=== PATIENT | female | born 1970 | race Hispanic/Latino ===

== ENCOUNTER → 2022-05-24 | Outpatient (CLI) | payer OTHER | END | disposition home or self-care (01) | LOC: RAH 11:12 | PROVIDERS: ATTEND Otolaryngology Plastic Surgery within the Head & Neck | DX: R22.1 Localized swelling, mass and lump, neck (principal) | CPT/HCPCS: 76536 ==

== ENCOUNTER 2022-06-25 08:42 | Inpatient (IN) | payer OTHER ==
[~2022-06-25] VITALS: Ht 152.4 cm; Wt 59.0 kg
[2022-06-25] VITALS (18 sets, daily range): BP systolic 116–138; BP diastolic 67–92
[2022-06-25 09:16] LABS: BASOPHILS % (AUTO) 0.5 % (0.0-5.0); EOSINOPHILS % (AUTO) 3.1 % (0.0-8.0); HEMATOCRIT 40.2 % (36-48); LYMPHOCYTES % (AUTO) 19.3 % (21.0-51.0); MEAN CORPUSCULAR HEMOGLOBIN 31.7 pg (27.0-33.0); MEAN CORPUSCULAR HGB CONC 35.1 g/dL (32.0-36.0); MEAN CORPUSCULAR VOLUME 90.3 fL (79-99); MONOCYTES % (AUTO) 7.4 % (3.0-13.0); NEUTROPHILS % (AUTO) 69.4 % (40.0-77.0); PLATELET COUNT (AUTO) 469 K/uL (130-400); RED BLOOD CELL COUNT(AUTO) 4.45 MIL/uL (4.00-5.50); RED CELL DISTRIBUTION WIDTH 12.5 % (11.0-15.5); WHITE BLOOD COUNT (AUTO) 9.3 K/uL (4.8-10.8)
[2022-06-25 09:18] LABS: APPEARANCE,URINE CLOUDY (CLEAR); BILIRUBIN,URINE NEGATIVE (NEGATIVE); COLOR,URINE LIGHT-YELLOW (YELLOW); GLUCOSE, URINE (UA) NEGATIVE (NEGATIVE); KETONES,URINE NEGATIVE (NEGATIVE); LEUKOCYTE ESTERASE ,URINE NEGATIVE Leu/uL (NEGATIVE); NITRATE,URINE NEGATIVE (NEGATIVE); OCCULT BLOOD,URINE NEGATIVE (NEGATIVE); PH,URINE 6.5 (5.0-8.0); PROTEIN,URINE NEGATIVE (NEGATIVE); UROBILINOGEN,URINE 0.2 mg/dL (0.2-1.0)
[2022-06-25 09:21] LABS: HCG,QUALITATIVE URINE NEGATIVE (NEGATIVE)
[2022-06-25 09:27] LABS: BACTERIA,URINE RARE /HPF (None Seen); MUCUS,URINE RARE LPF (None Seen); RBC,URINE 0-1 /HPF (0-1); SQUAMOUS EPITHELIAL CELL,UR MANY /HPF (0-2)
[2022-06-25 09:52] LABS: CREATININE 0.8 mg/dL (0.5-1.5); POTASSIUM 4.1 mmol/L (3.5-5.1)
[2022-06-25 09:57] LABS: ALBUMIN 3.3 g/dL (3.5-5.0); TOTAL PROTEIN, SERUM 7.6 g/dL (6.0-8.3)
[2022-06-25] MEDS ORDERED: MORPHINE 2 MG SYG IM ONE (10:00)
[2022-06-25] MEDS ORDERED: ZOSYN 3.375GM +NS 50ML IV ONE (10:00)
[2022-06-25] MEDS ORDERED: 0.9%NACL 1000ML 2,500 ML IV ONE (10:00)
[2022-06-25] MEDS ORDERED: VANCOMYCIN 1G VIAL IVPB ONE (10:00)
[2022-06-25] MEDS ORDERED: IOHEXOL-350 75 ML VIAL IV ONE (10:05)
[2022-06-25] MEDS ORDERED: VANCOMYCIN 1G/250ML KIT 250 ML IV ONE (11:17)
[2022-06-25] MEDS ORDERED: HYDROMORPHONE 0.5 MG SYG (0.5MG/0.5ML) IVP ONE (12:00)
[2022-06-25] MEDS ORDERED: HYDROMORPHONE 1 MG INJ IVP SCH (14:30)
[2022-06-25] MEDS ORDERED: VANCOMYCIN PROTOCOL PER PHARMACY IV SCH (15:00)
[2022-06-25] MEDS: 0.9%NACL 1000ML 1,000 ML IV SCH ×3 (15:00→22:02)
[2022-06-25] MEDS ORDERED: ONDANSETRON 4MG INJ IVP PRN (15:00)
[2022-06-25] MEDS ORDERED: KETOROLAC 60 MG VIAL (30MG/ML) IM ONE (15:00)
[2022-06-25] MEDS ORDERED: METOCLOPRAMIDE 10 MG/2 ML VIAL IVP ONE (17:00)
[2022-06-25] MEDS: VANCOMYCIN 500MG+NS 100ML 100 ML IV SCH (17:11)
[2022-06-25] MEDS: LIDOCAINE 1%-EPI 1:100,000 20 ML VIAL IJ SCH ×2 (18:00→18:43)
[2022-06-25] MEDS ORDERED: SUCCINYLCHOLINE CHLORIDE 20 MG/ML 10 ML VIAL ONE (18:11)
[2022-06-25] MEDS ORDERED: PROPOFOL 10 MG/ML 20ML VIAL IV ONE (18:11)
[2022-06-25] MEDS ORDERED: ONDANSETRON 4MG INJ ONE (18:12)
[2022-06-25] MEDS ORDERED: ROCURONIUM 10MG/1ML SYR 10 MG/ML ML ONE (18:13)
[2022-06-25] MEDS ORDERED: MIDAZOLAM HCL 1 MG/ML 5ML VIAL ONE (18:18)
[2022-06-25] MEDS ORDERED: FENTANYL CITRATE PF 50 MCG/1 ML 2ML VIAL ONE ×2 (18:19→18:51)
[2022-06-25] MEDS ORDERED: NEOSTIGMINE 5MG/5ML SYR IV ONE (18:51)
[2022-06-25] MEDS ORDERED: GLYCOPYRROLATE 1 MG/5 ML SYRINGE ONE (18:51)
[2022-06-25] MEDS ORDERED: KETOROLAC 30MG VIAL (30MG/ML) ONE (19:20)
[2022-06-25] MEDS ORDERED: MEPERIDINE-PF 25 MG/ML SYG ONE (19:21)
[2022-06-25] MEDS: ZOSYN 3.375GM +NS 50ML IV SCH (19:37)
[2022-06-25 19:48] LABS: AMPHET/METH SCREEN,URINE NEGATIVE (NEGATIVE); BARBITURATE SCREEN, URINE NEGATIVE (NEGATIVE); BENZODIAZEPINES SCREEN,URINE NEGATIVE (NEGATIVE); CANNABINOID SCREEN,URINE NEGATIVE (NEGATIVE); COCAINE SCREEN,URINE NEGATIVE (NEGATIVE); PHENCYCLIDINE SCREEN,URINE NEGATIVE (NEGATIVE)
[2022-06-25] MEDS ORDERED: HYDROCODONE/ACETAMINOPHEN 5/325 MG TAB PO PRN (21:30)
[2022-06-25] MEDS: FAMOTIDINE 20MG VIAL IV SCH (22:02)
[2022-06-26] MEDS ORDERED: 0.9%NACL 1000ML 1,000 ML IV SCH (02:00)
[2022-06-26] MEDS: ZOSYN 3.375GM +NS 50ML IV SCH ×3 (02:03→19:30)
[2022-06-26] MEDS: KETOROLAC 30MG VIAL (30MG/ML) IVP PRN ×3 (02:20→17:58)
[2022-06-26] MEDS ORDERED: CARB100T52 PO (02:27)
[2022-06-26] MEDS ORDERED: GABA300S PO (02:27)
[2022-06-26] MEDS ORDERED: GABA300C PO (03:17)
[2022-06-26 04:46] VITALS: BP 101/64
[2022-06-26] MEDS: VANCOMYCIN 500MG+NS 100ML 100 ML IV SCH ×2 (05:29→17:23)
[2022-06-26] MEDS: HYDROCODONE/ACETAMINOPHEN 5/325 MG TAB PO PRN ×4 (06:33→20:01)
[2022-06-26 07:07] VITALS: BP 119/94
[2022-06-26 09:00] LABS: BASOPHILS % (AUTO) 0.6 % (0.0-5.0); LYMPHOCYTES % (AUTO) 21.7 % (21.0-51.0); MEAN CORPUSCULAR HEMOGLOBIN 31.5 pg (27.0-33.0); MEAN CORPUSCULAR HGB CONC 34.1 g/dL (32.0-36.0); MEAN CORPUSCULAR VOLUME 92.4 fL (79-99); MONOCYTES % (AUTO) 6.7 % (3.0-13.0); NEUTROPHILS % (AUTO) 67.8 % (40.0-77.0); PLATELET COUNT (AUTO) 441 K/uL (130-400); RED BLOOD CELL COUNT(AUTO) 3.68 MIL/uL (4.00-5.50); RED CELL DISTRIBUTION WIDTH 12.9 % (11.0-15.5); WHITE BLOOD COUNT (AUTO) 8.3 K/uL (4.8-10.8)
[2022-06-26] MEDS: CARBAMAZEPINE 300 MG PO SCH ×3 (09:00→20:02)
[2022-06-26 09:14] LABS: CREATININE 0.7 mg/dL (0.5-1.5); POTASSIUM 3.9 mmol/L (3.5-5.1)
[2022-06-26 09:18] LABS: ALBUMIN 2.5 g/dL (3.5-5.0); CRP QUANTITATIVE 155.3 mg/L (0.00-9.0); MAGNESIUM 1.8 mg/dL (1.80-2.40); TOTAL PROTEIN, SERUM 6.2 g/dL (6.0-8.3)
[2022-06-26 10:14] LABS: ERYTHROCYTE SEDIMENTATION RATE 53 MM/HR (0-20)
[2022-06-26] MEDS: ENOXAPARIN SODIUM 40 MG/0.4 ML SYRINGE SQ SCH (10:45)
[2022-06-26] MEDS: GABAPENTIN 300 MG CAPSULE PO SCH ×3 (10:46→20:00)
[2022-06-26] MEDS: FAMOTIDINE 20MG VIAL IV SCH ×2 (10:46→20:00)
[2022-06-26 11:08] VITALS: BP 139/62
[2022-06-26 16:06] VITALS: BP 154/74
[2022-06-26 19:28] LABS: BASOPHILS % (AUTO) 0.7 % (0.0-5.0); EOSINOPHILS % (AUTO) 5.1 % (0.0-8.0); HEMATOCRIT 31.7 % (36-48); LYMPHOCYTES % (AUTO) 29.7 % (21.0-51.0); MEAN CORPUSCULAR HEMOGLOBIN 31.2 pg (27.0-33.0); MEAN CORPUSCULAR HGB CONC 34.1 g/dL (32.0-36.0); MEAN CORPUSCULAR VOLUME 91.6 fL (79-99); MONOCYTES % (AUTO) 8.7 % (3.0-13.0); NEUTROPHILS % (AUTO) 55.7 % (40.0-77.0); PLATELET COUNT (AUTO) 414 K/uL (130-400); RED BLOOD CELL COUNT(AUTO) 3.46 MIL/uL (4.00-5.50); RED CELL DISTRIBUTION WIDTH 12.7 % (11.0-15.5); WHITE BLOOD COUNT (AUTO) 6.9 K/uL (4.8-10.8)
[2022-06-26 19:36] LABS: CREATININE 0.7 mg/dL (0.5-1.5); POTASSIUM 3.8 mmol/L (3.5-5.1)
[2022-06-26 20:00] VITALS: BP 125/85
[2022-06-26] MEDS: CHLORHEXIDINE GLUCONATE 473 ML MOUTHWASH MM SCH (21:07)
[2022-06-26] MEDS: PANTOPRAZOLE 40 MG/VIAL IVP SCH (22:57)
[2022-06-26 23:07] VITALS: BP 121/75
[2022-06-27] MEDS: ZOSYN 3.375GM +NS 50ML IV SCH ×3 (02:07→18:33)
[2022-06-27] MEDS: KETOROLAC 30MG VIAL (30MG/ML) IVP PRN ×2 (03:01→13:13)
[2022-06-27 03:14] VITALS: BP 137/88
[2022-06-27] MEDS: VANCOMYCIN 500MG+NS 100ML 100 ML IV SCH ×3 (06:04→21:13)
[2022-06-27 06:13] LABS: BASOPHILS % (AUTO) 1.1 % (0.0-5.0); EOSINOPHILS % (AUTO) 8.8 % (0.0-8.0); HEMATOCRIT 31.2 % (36-48); LYMPHOCYTES % (AUTO) 33.8 % (21.0-51.0); MEAN CORPUSCULAR HEMOGLOBIN 31.5 pg (27.0-33.0); MEAN CORPUSCULAR HGB CONC 34.3 g/dL (32.0-36.0); MEAN CORPUSCULAR VOLUME 91.8 fL (79-99); MONOCYTES % (AUTO) 10.3 % (3.0-13.0); NEUTROPHILS % (AUTO) 45.8 % (40.0-77.0); PLATELET COUNT (AUTO) 464 K/uL (130-400); RED CELL DISTRIBUTION WIDTH 12.9 % (11.0-15.5); WHITE BLOOD COUNT (AUTO) 5.7 K/uL (4.8-10.8)
[2022-06-27 06:35] LABS: ALBUMIN 2.6 g/dL (3.5-5.0); CREATININE 0.7 mg/dL (0.5-1.5); CRP QUANTITATIVE 114.2 mg/L (0.00-9.0); POTASSIUM 4.2 mmol/L (3.5-5.1); TOTAL PROTEIN, SERUM 5.5 g/dL (6.0-8.3)
[2022-06-27 07:07] VITALS: BP 122/74
[2022-06-27] MEDS: CARBAMAZEPINE 300 MG PO SCH ×3 (09:00→21:14)
[2022-06-27] MEDS: CHLORHEXIDINE GLUCONATE 473 ML MOUTHWASH MM SCH ×2 (09:00→21:14)
[2022-06-27] MEDS: HYDROCODONE/ACETAMINOPHEN 5/325 MG TAB PO PRN ×2 (09:32→21:13)
[2022-06-27] MEDS: GABAPENTIN 300 MG CAPSULE PO SCH ×3 (09:33→21:13)
[2022-06-27] MEDS: DOCUSATE SODIUM 100 MG CAP PO SCH ×2 (09:34→21:13)
[2022-06-27] MEDS: SENNOSIDES 8.6 MG TABLET PO SCH (09:35)
[2022-06-27] MEDS: ENOXAPARIN SODIUM 40 MG/0.4 ML SYRINGE SQ SCH (09:44)
[2022-06-27 11:06] VITALS: BP 147/88
[2022-06-27] MEDS ORDERED: VANCOMYCIN 750MG VIAL IVPB SCH (13:00)
[2022-06-27] MEDS ORDERED: 0.9% NACL 250ML 250 ML IV SCH (13:00)
[2022-06-27 15:05] VITALS: BP 147/95
[2022-06-27] MEDS: PANTOPRAZOLE 40 MG/VIAL IVP SCH (21:14)
[2022-06-28] MEDS: ZOSYN 3.375GM +NS 50ML IV SCH ×3 (01:27→18:43)
[2022-06-28 04:00] VITALS: BP 127/83
[2022-06-28] MEDS: KETOROLAC 30MG VIAL (30MG/ML) IVP PRN (05:31)
[2022-06-28 05:50] LABS: HEMATOCRIT 31.6 % (36-48); MEAN CORPUSCULAR HEMOGLOBIN 31.4 pg (27.0-33.0); MEAN CORPUSCULAR HGB CONC 34.5 g/dL (32.0-36.0); MEAN CORPUSCULAR VOLUME 91.1 fL (79-99); RED BLOOD CELL COUNT(AUTO) 3.47 MIL/uL (4.00-5.50); RED CELL DISTRIBUTION WIDTH 12.4 % (11.0-15.5); WHITE BLOOD COUNT (AUTO) 6.4 K/uL (4.8-10.8)
[2022-06-28 06:14] LABS: % IRON SATURATION 32.5 % (22-44)
[2022-06-28 06:19] LABS: ALBUMIN 2.5 g/dL (3.5-5.0); CREATININE 0.7 mg/dL (0.5-1.5); POTASSIUM 3.3 mmol/L (3.5-5.1); TOTAL PROTEIN, SERUM 6.1 g/dL (6.0-8.3)
[2022-06-28 08:00] VITALS: BP 132/86
[2022-06-28] MEDS ORDERED: IOHEXOL 350 MG/ML 100ML INFUS..BTL IV ONE (08:46)
[2022-06-28] MEDS: CHLORHEXIDINE GLUCONATE 473 ML MOUTHWASH MM SCH ×2 (09:00→20:25)
[2022-06-28] MEDS: VANCOMYCIN 500MG+NS 100ML 100 ML IV SCH (09:24)
[2022-06-28] MEDS: GABAPENTIN 300 MG CAPSULE PO SCH ×3 (09:25→20:25)
[2022-06-28] MEDS: SENNOSIDES 8.6 MG TABLET PO SCH (09:25)
[2022-06-28] MEDS: DOCUSATE SODIUM 100 MG CAP PO SCH ×2 (09:25→20:24)
[2022-06-28] MEDS: ENOXAPARIN SODIUM 40 MG/0.4 ML SYRINGE SQ SCH (09:26)
[2022-06-28] MEDS: CARBAMAZEPINE 300 MG PO SCH ×3 (09:27→21:01)
[2022-06-28 11:12] VITALS: BP 154/96
[2022-06-28] MEDS: HYDROCODONE/ACETAMINOPHEN 5/325 MG TAB PO PRN ×2 (12:39→22:31)
[2022-06-28] MEDS ORDERED: LIDOCAINE HCL-MPF 1% 2ML VIAL IV PRN (15:00)
[2022-06-28] MEDS ORDERED: POTASSIUM CHLORIDE 20MEQ/100ML 100 ML IV PRN (15:00)
[2022-06-28] MEDS ORDERED: POTASSIUM CHLORIDE 10% ELIXIR 20 MEQ/15 ML UDCUP PO PRN (15:00)
[2022-06-28] MEDS: KCL 20 MEQ ERTAB PO PRN ×3 (15:54→20:25)
[2022-06-28 15:58] LABS: INR 0.93 (0.85-1.15); PROTHROMBIN TIME 9.6 SEC (9.6-11.6)
[2022-06-28 15:59] LABS: PARTIAL THROMBOPLASTIN TIME 24.6 SEC (26.3-35.5)
[2022-06-28 16:05] VITALS: BP 156/92
[2022-06-28 20:00] VITALS: BP 143/92
[2022-06-28] MEDS: PANTOPRAZOLE 40 MG/VIAL IVP SCH (20:24)
[2022-06-28] MEDS: VANCOMYCIN 1G/250ML KIT 250 ML IV SCH (22:13)
[2022-06-29] VITALS: BP 128/78
[2022-06-29] MEDS: ZOSYN 3.375GM +NS 50ML IV SCH ×2 (02:53→08:43)
[2022-06-29 04:00] VITALS: BP 110/71
[2022-06-29 05:58] LABS: HEMATOCRIT 33.4 % (36-48); MEAN CORPUSCULAR HEMOGLOBIN 31.3 pg (27.0-33.0); MEAN CORPUSCULAR HGB CONC 34.7 g/dL (32.0-36.0); RED BLOOD CELL COUNT(AUTO) 3.71 MIL/uL (4.00-5.50); RED CELL DISTRIBUTION WIDTH 12.1 % (11.0-15.5); WHITE BLOOD COUNT (AUTO) 6.6 K/uL (4.8-10.8)
[2022-06-29 06:18] LABS: ALBUMIN 2.6 g/dL (3.5-5.0); CREATININE 0.7 mg/dL (0.5-1.5); POTASSIUM 4.1 mmol/L (3.5-5.1); TOTAL PROTEIN, SERUM 6.1 g/dL (6.0-8.3)
[2022-06-29 08:00] VITALS: BP 121/72
[2022-06-29] MEDS: SENNOSIDES 8.6 MG TABLET PO SCH (08:46)
[2022-06-29] MEDS: VANCOMYCIN 1G/250ML KIT 250 ML IV SCH (08:46)
[2022-06-29] MEDS: DOCUSATE SODIUM 100 MG CAP PO SCH (08:46)
[2022-06-29] MEDS: GABAPENTIN 300 MG CAPSULE PO SCH ×2 (08:46→14:59)
[2022-06-29] MEDS: CARBAMAZEPINE 300 MG PO SCH ×2 (08:46→14:59)
[2022-06-29] MEDS: ENOXAPARIN SODIUM 40 MG/0.4 ML SYRINGE SQ SCH (08:47)
[2022-06-29] MEDS: CHLORHEXIDINE GLUCONATE 473 ML MOUTHWASH MM SCH (08:47)
[2022-06-29 11:48] VITALS: BP 141/81
[2022-06-29 16:00] VITALS: BP 130/86
== END 2022-06-29 17:10 | disposition home or self-care (01) | DRG 158 ==
LOC: EDH 08:42 → EDHIP 14:49 → 3BH 16:00
PROVIDERS: ADMIT Family Medicine; ATTEND Family Medicine
PROC: 0J910ZZ Drainage of Face Subcutaneous Tissue and Fascia, Open Approach (ICD-10-PCS; principal; 2022-06-25 18:27)
DX: K12.2 Cellulitis and abscess of mouth (principal); E44.0 Moderate protein-calorie malnutrition; E87.1 Hypo-osmolality and hyponatremia; L03.211 Cellulitis of face; G50.0 Trigeminal neuralgia; M27.2 Inflammatory conditions of jaws; K75.89 Other specified inflammatory liver diseases; D64.9 Anemia, unspecified
CPT/HCPCS: 36415; 70487; 70491; 71045; 80048; 80053; 80202; 80305; 81001; 81025; 82040; 82607; 82728; 82746; 83540; 83550; 83605; 83735; 84145; 84155; 85025; 85027; 85610; 85651; 85730; 86140; 87040; 87070; 87076; 87205; 87635; A4606; C1894; C9113; G0378; J0330; J1170; J1650; J1885; J2175; J2250; J2405; J2543; J2704; J2710; J2765; J3010; J3370; J3490; J7030; Q9967

== ENCOUNTER 2022-07-29 09:48 | Inpatient (IN) | payer OTHER ==
[~2022-07-29] VITALS: Ht 152.4 cm; Wt 58.6 kg
[~2022-07-29 09:48] MED LIST: CARB100T52 PO; GABA300C PO
[2022-07-29 11:26] LABS: BASOPHILS % (AUTO) 0.3 % (0.0-5.0); HEMATOCRIT 40.8 % (36-48); LYMPHOCYTES % (AUTO) 6.1 % (21.0-51.0); MEAN CORPUSCULAR HEMOGLOBIN 30.2 pg (27.0-33.0); MEAN CORPUSCULAR HGB CONC 34.1 g/dL (32.0-36.0); MEAN CORPUSCULAR VOLUME 88.7 fL (79-99); MONOCYTES % (AUTO) 2.7 % (3.0-13.0); NEUTROPHILS % (AUTO) 75.2 % (40.0-77.0); PLATELET COUNT (AUTO) 443 K/uL (130-400); RED CELL DISTRIBUTION WIDTH 12.2 % (11.0-15.5); WHITE BLOOD COUNT (AUTO) 7.3 K/uL (4.8-10.8)
[2022-07-29] MEDS ORDERED: SOLU-MEDROL 125MG VIAL IVP ONE (11:30)
[2022-07-29] MEDS ORDERED: 0.9%NACL 1000ML 1,000 ML IV ONE (11:30)
[2022-07-29] MEDS ORDERED: FAMOTIDINE 20MG VIAL IV ONE (11:30)
[2022-07-29 11:35] LABS: CREATININE 2.4 mg/dL (0.5-1.5); POTASSIUM 4.5 mmol/L (3.5-5.1)
[2022-07-29 11:39] LABS: ALBUMIN 2.9 g/dL (3.5-5.0); TOTAL PROTEIN, SERUM 7.2 g/dL (6.0-8.3)
[2022-07-29] MEDS ORDERED: ONDANSETRON 4MG INJ IVP PRN (14:30)
[2022-07-29] MEDS ORDERED: DiphenhydrAMINE HCL 50 MG/ML VIAL IM ONE (14:30)
[2022-07-29 15:45] VITALS: BP 120/88
[2022-07-29] MEDS: 0.9%NACL 1000ML 1,000 ML IV SCH ×2 (15:48→23:42)
[2022-07-29] MEDS: FAMOTIDINE 20MG VIAL IV SCH (15:48)
[2022-07-29] MEDS: ACETAMINOPHEN 325 MG TAB PO PRN (17:54)
[2022-07-29] MEDS ORDERED: METOPROLOL PO (19:01)
[2022-07-29 20:35] VITALS: BP 118/80
[2022-07-29] MEDS ORDERED: ALPRAZOLAM 0.5 MG TABLET ONE (21:19)
[2022-07-29] MEDS: ALPRAZOLAM 0.5 MG TABLET PO SCH (21:20)
[2022-07-29 21:35] LABS: APPEARANCE,URINE CLEAR (CLEAR); BILIRUBIN,URINE NEGATIVE (NEGATIVE); COLOR,URINE LIGHT-YELLOW (YELLOW); GLUCOSE, URINE (UA) NEGATIVE (NEGATIVE); KETONES,URINE 10 mg/dL (NEGATIVE); LEUKOCYTE ESTERASE ,URINE NEGATIVE Leu/uL (NEGATIVE); NITRATE,URINE NEGATIVE (NEGATIVE); OCCULT BLOOD,URINE LARGE (NEGATIVE); PROTEIN,URINE 30 mg/dL (NEGATIVE); UROBILINOGEN,URINE 0.2 mg/dL (0.2-1.0)
[2022-07-29 21:40] LABS: BACTERIA,URINE Few /HPF (None Seen); MUCUS,URINE Few LPF (None Seen); RBC,URINE 26-50 /HPF (0-1); SQUAMOUS EPITHELIAL CELL,UR Few /HPF (0-2); TRANSITIONAL EPI CELLS,URINE Few /HPF (None Seen)
[2022-07-29 23:49] VITALS: BP 133/78
[2022-07-30] MEDS: ACETAMINOPHEN 325 MG TAB PO PRN ×3 (00:28→14:57)
[2022-07-30] MEDS: 0.9%NACL 1000ML 1,000 ML IV SCH ×4 (00:57→23:38)
[2022-07-30] MEDS: DiphenhydrAMINE HCL 50 MG/ML VIAL IV SCH ×4 (02:25→21:08)
[2022-07-30] MEDS: FAMOTIDINE 20MG VIAL IV SCH ×2 (02:26→13:37)
[2022-07-30 03:55] VITALS: BP 108/69
[2022-07-30 05:05] LABS: HEMATOCRIT 37.4 % (36-48); MEAN CORPUSCULAR HEMOGLOBIN 30.3 pg (27.0-33.0); MEAN CORPUSCULAR HGB CONC 34.2 g/dL (32.0-36.0); MEAN CORPUSCULAR VOLUME 88.4 fL (79-99); RED BLOOD CELL COUNT(AUTO) 4.23 MIL/uL (4.00-5.50); RED CELL DISTRIBUTION WIDTH 12.1 % (11.0-15.5); WHITE BLOOD COUNT (AUTO) 10.6 K/uL (4.8-10.8)
[2022-07-30 05:17] LABS: CREATININE 2.1 mg/dL (0.5-1.5); MAGNESIUM 1.6 mg/dL (1.80-2.40); POTASSIUM 4.7 mmol/L (3.5-5.1)
[2022-07-30 05:26] LABS: HEMOGLOBIN A1C 5.9 % (4.0-6.0)
[2022-07-30 07:05] VITALS: BP 100/67
[2022-07-30] MEDS ORDERED: BENZOCAINE/MENTH/CETYLPYRD CL 1 EACH LOZENGE MM PRN (09:00)
[2022-07-30] MEDS ORDERED: SOLU-MEDROL 40MG VIAL IVP ONE (09:00)
[2022-07-30] MEDS ORDERED: MAGNESIUM 2GM PREMIX 50ML 50 ML IV SCH (09:00)
[2022-07-30] MEDS ORDERED: SOLU-MEDROL 40MG VIAL IVP SCH (09:00)
[2022-07-30] MEDS: MORPHINE 2 MG SYG IVP PRN ×2 (10:14→19:34)
[2022-07-30 11:12] VITALS: BP 93/55
[2022-07-30] MEDS: SOLU-MEDROL 40MG VIAL IVP SCH ×2 (14:56→21:08)
[2022-07-30 16:11] VITALS: BP 96/56
[2022-07-30] MEDS: ALPRAZOLAM 0.5 MG TABLET PO SCH (19:34)
[2022-07-30 20:00] VITALS: BP 107/68
[2022-07-30 20:13] LABS: HEPATITIS A IGM ANTIBODY Non-Reactive (Nonreactive); HEPATITIS B CORE IGM ANTIBODY Non-Reactive (Negative); HEPATITIS B SURFACE ANTIGEN Non-Reactive (Nonreactive); HEPATITIS C ANTIBODY Non-Reactive (Nonreactive)
[2022-07-30 23:39] VITALS: BP 109/68
[2022-07-31] MEDS: FAMOTIDINE 20MG VIAL IV SCH ×2 (01:40→14:47)
[2022-07-31 03:52] VITALS: BP 105/63
[2022-07-31 05:01] LABS: HEMATOCRIT 35.8 % (36-48); MEAN CORPUSCULAR HEMOGLOBIN 30.3 pg (27.0-33.0); MEAN CORPUSCULAR HGB CONC 33.8 g/dL (32.0-36.0); MEAN CORPUSCULAR VOLUME 89.5 fL (79-99); RED CELL DISTRIBUTION WIDTH 12.6 % (11.0-15.5); WHITE BLOOD COUNT (AUTO) 12.8 K/uL (4.8-10.8)
[2022-07-31] MEDS: SOLU-MEDROL 40MG VIAL IVP SCH ×3 (05:08→21:11)
[2022-07-31] MEDS: DiphenhydrAMINE HCL 50 MG/ML VIAL IV SCH ×3 (05:08→21:11)
[2022-07-31 05:19] LABS: ALBUMIN 2.3 g/dL (3.5-5.0); CREATININE 1.7 mg/dL (0.5-1.5); MAGNESIUM 2.6 mg/dL (1.80-2.40); PHOSPHORUS 2.9 mg/dL (2.5-4.9); POTASSIUM 4.4 mmol/L (3.5-5.1); TOTAL PROTEIN, SERUM 5.9 g/dL (6.0-8.3)
[2022-07-31] MEDS: 0.9%NACL 1000ML 1,000 ML IV SCH ×2 (05:36→16:30)
[2022-07-31 07:48] VITALS: BP 139/84
[2022-07-31] MEDS: MORPHINE 2 MG SYG IVP PRN ×2 (10:24→19:24)
[2022-07-31 11:31] VITALS: BP 130/90
[2022-07-31] MEDS: ACETAMINOPHEN 325 MG TAB PO PRN ×2 (14:48→23:54)
[2022-07-31 16:00] VITALS: BP 140/71
[2022-07-31 20:05] VITALS: BP 134/73
[2022-07-31] MEDS: ALPRAZOLAM 0.5 MG TABLET PO SCH (21:11)
[2022-08-01] VITALS: BP 127/79
[2022-08-01] MEDS: 0.9%NACL 1000ML 1,000 ML IV SCH ×3 (01:50→20:35)
[2022-08-01] MEDS: FAMOTIDINE 20MG VIAL IV SCH ×2 (02:40→13:34)
[2022-08-01 04:00] VITALS: BP 144/88
[2022-08-01] MEDS: SOLU-MEDROL 40MG VIAL IVP SCH ×3 (05:46→20:30)
[2022-08-01] MEDS: DiphenhydrAMINE HCL 50 MG/ML VIAL IV SCH ×3 (05:46→20:33)
[2022-08-01 07:54] LABS: HEMATOCRIT 34.2 % (36-48); MEAN CORPUSCULAR HEMOGLOBIN 30.4 pg (27.0-33.0); MEAN CORPUSCULAR HGB CONC 33.9 g/dL (32.0-36.0); MEAN CORPUSCULAR VOLUME 89.8 fL (79-99); RED BLOOD CELL COUNT(AUTO) 3.81 MIL/uL (4.00-5.50); RED CELL DISTRIBUTION WIDTH 12.8 % (11.0-15.5); WHITE BLOOD COUNT (AUTO) 16.8 K/uL (4.8-10.8)
[2022-08-01 08:00] VITALS: BP 127/84
[2022-08-01 08:02] LABS: CREATININE 1.5 mg/dL (0.5-1.5); MAGNESIUM 2.4 mg/dL (1.80-2.40)
[2022-08-01] MEDS: ACETAMINOPHEN 325 MG TAB PO PRN ×2 (08:35→17:07)
[2022-08-01 12:00] VITALS: BP 124/82
[2022-08-01] MEDS: MORPHINE 2 MG SYG IVP PRN (12:09)
[2022-08-01 16:00] VITALS: BP 147/96
[2022-08-01 20:00] VITALS: BP 143/87
[2022-08-01] MEDS: ALPRAZOLAM 0.5 MG TABLET PO SCH (20:29)
[2022-08-02] VITALS: BP 158/80
[2022-08-02] MEDS: FAMOTIDINE 20MG VIAL IV SCH ×2 (02:35→13:41)
[2022-08-02] MEDS: MORPHINE 2 MG SYG IVP PRN ×3 (02:36→20:23)
[2022-08-02 04:00] VITALS: BP 157/91
[2022-08-02 05:25] LABS: HEMATOCRIT 33.9 % (36-48); MEAN CORPUSCULAR HEMOGLOBIN 30.1 pg (27.0-33.0); MEAN CORPUSCULAR HGB CONC 33.3 g/dL (32.0-36.0); MEAN CORPUSCULAR VOLUME 90.4 fL (79-99); RED BLOOD CELL COUNT(AUTO) 3.75 MIL/uL (4.00-5.50); RED CELL DISTRIBUTION WIDTH 12.8 % (11.0-15.5); WHITE BLOOD COUNT (AUTO) 17.9 K/uL (4.8-10.8)
[2022-08-02 05:43] LABS: CREATININE 1.4 mg/dL (0.5-1.5); MAGNESIUM 2.1 mg/dL (1.80-2.40); POTASSIUM 4.7 mmol/L (3.5-5.1)
[2022-08-02] MEDS: SOLU-MEDROL 40MG VIAL IVP SCH ×3 (06:25→22:34)
[2022-08-02] MEDS: 0.9%NACL 1000ML 1,000 ML IV SCH ×2 (06:25→18:41)
[2022-08-02] MEDS: DiphenhydrAMINE HCL 50 MG/ML VIAL IV SCH ×3 (06:25→22:34)
[2022-08-02 07:00] VITALS: BP 129/89
[2022-08-02 11:00] VITALS: BP 142/86
[2022-08-02 15:05] VITALS: BP 155/97
[2022-08-02] MEDS: ALPRAZOLAM 0.5 MG TABLET PO SCH (20:23)
[2022-08-02 21:08] VITALS: BP 147/97
[2022-08-03 00:25] VITALS: BP 151/95
[2022-08-03] MEDS: FAMOTIDINE 20MG VIAL IV SCH ×2 (02:36→14:23)
[2022-08-03] MEDS: 0.9%NACL 1000ML 1,000 ML IV SCH ×3 (03:36→14:23)
[2022-08-03 03:57] VITALS: BP 144/95
[2022-08-03] MEDS: SOLU-MEDROL 40MG VIAL IVP SCH ×3 (05:16→21:31)
[2022-08-03] MEDS: DiphenhydrAMINE HCL 50 MG/ML VIAL IV SCH ×3 (05:16→21:31)
[2022-08-03 07:00] VITALS: BP 155/97
[2022-08-03 10:58] LABS: MEAN CORPUSCULAR HEMOGLOBIN 30.2 pg (27.0-33.0); MEAN CORPUSCULAR HGB CONC 33.4 g/dL (32.0-36.0); MEAN CORPUSCULAR VOLUME 90.2 fL (79-99); RED BLOOD CELL COUNT(AUTO) 3.88 MIL/uL (4.00-5.50); RED CELL DISTRIBUTION WIDTH 12.8 % (11.0-15.5)
[2022-08-03 11:00] VITALS: BP 148/95
[2022-08-03] MEDS: MORPHINE 2 MG SYG IVP PRN (11:05)
[2022-08-03 11:09] LABS: CREATININE 1.5 mg/dL (0.5-1.5); POTASSIUM 4.3 mmol/L (3.5-5.1)
[2022-08-03 15:00] VITALS: BP 142/89
[2022-08-03 20:00] VITALS: BP 155/98
[2022-08-03] MEDS: ALPRAZOLAM 0.5 MG TABLET PO SCH (20:14)
[2022-08-04] VITALS: BP 161/94
[2022-08-04] MEDS: 0.9%NACL 1000ML 1,000 ML IV SCH ×2 (00:21→10:32)
[2022-08-04] MEDS: FAMOTIDINE 20MG VIAL IV SCH ×2 (02:30→15:01)
[2022-08-04 04:00] VITALS: BP 145/94
[2022-08-04 05:06] LABS: HEMATOCRIT 34.4 % (36-48); MEAN CORPUSCULAR HEMOGLOBIN 30.4 pg (27.0-33.0); MEAN CORPUSCULAR HGB CONC 33.7 g/dL (32.0-36.0); MEAN CORPUSCULAR VOLUME 90.1 fL (79-99); NUCLEATED RED BLOOD CELLS 0.1 % (0.0-0.19); RED BLOOD CELL COUNT(AUTO) 3.82 MIL/uL (4.00-5.50); RED CELL DISTRIBUTION WIDTH 12.6 % (11.0-15.5); WHITE BLOOD COUNT (AUTO) 28.4 K/uL (4.8-10.8)
[2022-08-04 05:19] LABS: CREATININE 1.3 mg/dL (0.5-1.5); POTASSIUM 4.7 mmol/L (3.5-5.1)
[2022-08-04] MEDS: DiphenhydrAMINE HCL 50 MG/ML VIAL IV SCH ×2 (05:28→15:01)
[2022-08-04] MEDS: SOLU-MEDROL 40MG VIAL IVP SCH ×2 (05:28→15:01)
[2022-08-04 08:00] VITALS: BP 143/94
[2022-08-04 12:04] VITALS: BP 149/100
== END 2022-08-04 15:45 | disposition home or self-care (01) | DRG 916 ==
LOC: EDH 09:48 → EDHIP 14:20 → 3AH 14:52
PROVIDERS: ADMIT Internal Medicine Infectious Disease; ATTEND Internal Medicine Infectious Disease
DX: T78.49XA Other allergy, initial encounter (principal); N17.9 Acute kidney failure, unspecified; E86.0 Dehydration; J02.9 Acute pharyngitis, unspecified; X58.XXXA Exposure to other specified factors, initial encounter; Z82.49 Family history of ischemic heart disease and other diseases of the circulatory system
CPT/HCPCS: 36415; 71045; 80048; 80053; 80069; 80074; 81001; 82550; 82948; 83036; 83735; 84484; 85025; 85027; 86665; 87040; 93005; G0378; J1200; J2920; J2930; J3475; J3490; J7030

== ENCOUNTER 2022-08-10 14:05 | Emergency (ER) | payer OTHER ==
[~2022-08-10] VITALS: Ht 162.6 cm; Wt 54.4 kg
[~2022-08-10 14:05] MED LIST changes: -CARB100T52 PO; -GABA300C PO; +METOPROLOL PO
[2022-08-10 14:10] VITALS: BP 130/88
== END 2022-08-10 16:37 | disposition left against medical advice (07) ==
LOC: EDH 14:05
DX: R68.89 Other general symptoms and signs (principal); Z88.0 Allergy status to penicillin; Z53.21 Procedure and treatment not carried out due to patient leaving prior to being seen by health care provider

== ENCOUNTER 2023-10-03 05:58 | Emergency (ER) | payer BC, OTHER ==
[~2023-10-03] VITALS: Ht 152.4 cm; Wt 61.2 kg
[~2023-10-03 05:58] MED LIST changes: +ACET-2079 PO; +ALPR0.25 PO; +DOCU-116 PO; +IBUP-2077 PO; +METO-391 PO; -METOPROLOL PO; +SERT25TA PO
[2023-10-03] MEDS ORDERED: HYDROMORPHONE 1 MG INJ IVP ONE (08:00)
[2023-10-03 11:20] VITALS: BP 133/78; PULSE 98; RESP 20; O2SAT 98
== END 2023-10-03 11:24 | disposition home or self-care (01) ==
LOC: EDH 05:58
DX: M54.12 Radiculopathy, cervical region (principal); Z79.899 Other long term (current) drug therapy; Z88.0 Allergy status to penicillin; Z88.1 Allergy status to other antibiotic agents
CPT/HCPCS: 99284; 96374; 72040; J1170

== ENCOUNTER 2023-10-20 20:09 | Emergency (ER) | payer BC ==
[~2023-10-20] VITALS: Ht 152.4 cm; Wt 58.7 kg
[2023-10-20] MEDS ORDERED: ACETAMINOPHEN 500 MG TABLET PO ONE (20:30)
[2023-10-20] MEDS ORDERED: ONDANSETRON 4MG INJ IVP ONE (20:30)
[2023-10-20 20:34] LABS: BASOPHILS # (AUTO) 0.06 K/uL (0.00-0.20); BASOPHILS % (AUTO) 0.4 % (0.0-5.0); EOSINOPHILS # (AUTO) 0.22 K/uL (0.00-0.70); EOSINOPHILS % (AUTO) 1.4 % (0.0-8.0); HEMATOCRIT 42.4 % (36-48); IMMATURE GRANULOCYTE ABSOLUTE 0.07 K/uL (0-1); LYMPHOCYTES # (AUTO) 1.3 K/uL (1.0-4.8); LYMPHOCYTES % (AUTO) 8.5 % (21.0-51.0); MEAN CORPUSCULAR VOLUME 94.2 fL (79-99); MONOCYTES # (AUTO) 0.6 K/uL (0.1-1.0); MONOCYTES % (AUTO) 3.9 % (3.0-13.0); NEUTROPHILS # (AUTO) 13.5 K/uL (1.8-7.7); NEUTROPHILS % (AUTO) 85.4 % (40.0-77.0); PLATELET COUNT (AUTO) 359 K/uL (130-400); RED CELL DISTRIBUTION WIDTH 12.9 % (11.0-15.5); WHITE BLOOD COUNT (AUTO) 15.8 K/uL (4.8-10.8)
[2023-10-20 20:44] LABS: CREATININE 0.9 mg/dL (0.5-1.5); POTASSIUM 3.7 mmol/L (3.5-5.1)
[2023-10-20 20:49] LABS: APPEARANCE,URINE CLEAR (CLEAR); BILIRUBIN,URINE NEGATIVE (NEGATIVE); COLOR,URINE COLORLESS (YELLOW); GLUCOSE, URINE (UA) NEGATIVE (NEGATIVE); KETONES,URINE NEGATIVE (NEGATIVE); LEUKOCYTE ESTERASE ,URINE 500 Leu/uL (NEGATIVE); NITRATE,URINE NEGATIVE (NEGATIVE); PROTEIN,URINE NEGATIVE (NEGATIVE); UROBILINOGEN,URINE 0.2 mg/dL (0.2-1.0)
[2023-10-20 20:49] LABS: ALBUMIN 3.4 g/dL (3.5-5.0); BILIRUBIN,TOTAL 0.3 mg/dL (0.2-1.0); TOTAL PROTEIN, SERUM 7.6 g/dL (6.0-8.3)
[2023-10-20 20:56] LABS: ADD UA MICROSCOPIC YES
[2023-10-20 20:59] LABS: BACTERIA,URINE FEW /HPF (None Seen); SQUAMOUS EPITHELIAL CELL,UR FEW /HPF (0-2); TRANSITIONAL EPI CELLS,URINE RARE /HPF (None Seen); WBC,URINE 51-100 /HPF (0-1)
[2023-10-20] MEDS ORDERED: 0.9%NACL 1000ML 1,000 ML IV ONE (21:00)
[2023-10-20] MEDS ORDERED: KETOROLAC 30MG VIAL (30MG/ML) IVP ONE (21:00)
[2023-10-20 21:03] VITALS: TEMP 99
[2023-10-20 21:21] LABS: SARS-CoV-2, RNA, NAAT NEGATIVE SARS CoV-2 (NEGATIVE)
[2023-10-20 21:29] LABS: INFLUENZA TYPE A Negative For Type A (NEGATIVE); INFLUENZA TYPE B Negative For Type B (NEGATIVE)
[2023-10-20] MEDS ORDERED: LEVOFLOXACIN 500 MG TABLET PO SCH ×2 (21:30→22:00)
[2023-10-20] MEDS ORDERED: LEVO750T39 PO (21:43)
[2023-10-20 21:46] VITALS: BP 139/75; PULSE 89; RESP 18; O2SAT 99
== END 2023-10-20 21:52 | disposition home or self-care (01) ==
LOC: EDH 20:09
DX: N39.0 Urinary tract infection, site not specified (principal); Z79.899 Other long term (current) drug therapy; Z88.0 Allergy status to penicillin; Z88.1 Allergy status to other antibiotic agents; Z90.710 Acquired absence of both cervix and uterus; Z20.822 Contact with and (suspected) exposure to COVID-19
CPT/HCPCS: 99284; 96374; 87635; 96375; 80053; 85025; 87040 ×2; 87088; 87804 ×2; 83605; 81001; 36415; J7030; J2405; J1885